=== PATIENT | male | born 2000 | race Caucasian/White ===

== ENCOUNTER 2023-10-13 01:19 | Emergency (ER) | payer MEDICAID ==
[~2023-10-13] VITALS: Ht 182.9 cm; Wt 110.0 kg
[2023-10-13 01:23] VITALS: O2SAT 97
[2023-10-13] MEDS ORDERED: KETOROLAC 15MG/ML VIAL IV ONE (01:45)
[2023-10-13 02:07] LABS: BASOPHILS % 0.3 % (0.0-2.0); EOSINOPHILS % 0.3 % (0.0-5.0); HEMATOCRIT. 34.9 % (42.0-52.0); HEMOGLOBIN. 12.1 g/dL (14.0-18.0); LYMPHOCYTES % 9.9 % (20.0-50.0); MEAN CORPUSCULAR HGB CONC 34.6 g/dL (31.0-37.0); MEAN CORPUSCULAR VOLUME 83.6 fL (80.0-94.0); MEAN PLATELET VOLUME 8.8 fl (7.4-10.4); MONOCYTES % 3.3 % (2.0-8.0); NEUTROPHILS % 86.2 % (40.0-76.0); PLATELET 146 x1000/uL (130-400); RED BLOOD CELL COUNT 4.17 mill/uL (4.7-6.1); RED CELL DISTRIBUTION WIDTH 15.4 % (11.6-14.6); WHITE BLOOD COUNT 7.7 x1000/uL (4.5-11.0)
[2023-10-13 02:18] LABS: ALANINE AMINOTRANSFERASE 211 IU/L (10-49); ASPARTATE AMINOTRANSFERASE 187 IU/L (<34); BILIRUBIN TOTAL 1.1 mg/dL (0.1-1.0); CALCIUM 8.4 mg/dL (8.7-10.4); CARBON DIOXIDE 23 mEq/L (21-32); CHLORIDE 104 mEq/L (98-107); CREATININE 0.7 mg/dL (0.6-1.3); GLUCOSE 122 mg/dL (70-105); POTASSIUM 3.4 mEq/L (3.5-5.1); PROTEIN TOTAL 6.6 g/dL (6.0-8.3); SODIUM 138 mEq/L (136-145); UREA NITROGEN BLOOD 11 mg/dL (9-23)
[2023-10-13 02:31] LABS: ETHANOL BLOOD < 10 mg/dL (<10)
[2023-10-13] MEDS: KETOROLAC 15MG/ML VIAL IV NR (04:17)
[2023-10-13 04:23] LABS: CLARITY URINE CLEAR (CLEAR); COLOR URINE DARK YELLOW (YELLOW); GLUCOSE URINE NEGATIVE (NEGATIVE); KETONES URINE NEGATIVE (NEGATIVE); LEUKOCYTE ESTERASE URINE NEGATIVE (NEGATIVE); NITRITE URINE NEGATIVE (NEGATIVE); OCCULT BLOOD URINE NEGATIVE (NEGATIVE); PH URINE 6.5 (4.5-8.0); PROTEIN URINE NEGATIVE (NEGATIVE); SPECIFIC GRAVITY URINE 1.019 (1.005-1.030); UROBILINOGEN URINE >8.0 E.U./dL (0.2-1.0)
[2023-10-13 04:28] LABS: *AMPHETAMINES SCREEN URINE NEGATIVE (NEGATIVE); *BARBITURATES SCREEN URINE NEGATIVE (NEGATIVE); *BENZODIAZEPINES SCREEN URINE NEGATIVE (NEGATIVE); *COCAINE SCREEN URINE NEGATIVE (NEGATIVE); CANNABINOID URINE SCREEN NEGATIVE (NEGATIVE); ECSTASY MDMA SCREEN URINE NEGATIVE (NEGATIVE); METHADONE URINE SCREEN Neg (NEGATIVE); OPIATES URINE SCREEN NEGATIVE (NEGATIVE); PHENCYCLIDINE URINE SCREEN NEGATIVE (NEGATIVE)
[2023-10-13 04:51] LABS: BACTERIA URINE NONE SEEN; RBC URINE 0-2 /hpf (0-2); SQUAMOUS EPITHELIAL CELL URINE NONE SEEN /lpf (RARE/1+); WBC URINE 0-2 /hpf (0-2)
[2023-10-13] MEDS ORDERED: NAPR-677 MT (06:36)
[2023-10-13 06:59] VITALS: BP 125/78; PULSE 115; RESP 18; TEMP 103.3
== END 2023-10-13 07:00 | disposition home or self-care (01) ==
LOC: ER 01:36
DX: R50.9 Fever, unspecified (principal); R74.01 Elevation of levels of liver transaminase levels; B34.9 Viral infection, unspecified; Z20.822 Contact with and (suspected) exposure to COVID-19
CPT/HCPCS: 80053; 80305; 81003; 80320; 85025; 87804 ×2; 36415; 71045; 76705; 96374; 99285; 87426; J1885; Z7610; G0480

== ENCOUNTER 2024-06-29 17:10 | Emergency (ER) | payer MEDICAID ==
[~2024-06-29] VITALS: Ht 172.7 cm; Wt 115.0 kg
[~2024-06-29 17:10] MED LIST: NAPR-677 MT
[2024-06-29 17:20] VITALS: O2SAT 100
[2024-06-29] MEDS ORDERED: ACETAMINOPHEN 325MG TABLET PO ONE (17:30)
[2024-06-29] MEDS: ACETAMINOPHEN 325MG TABLET PO NR (21:41)
[2024-06-29] MEDS: IBUPROFEN 400MG TABLET PO ONE (21:41)
[2024-06-29] MEDS ORDERED: ACET-2708 MT (23:45)
[2024-06-30 00:07] VITALS: BP 140/77; PULSE 62; RESP 18; TEMP 36.72516; O2SAT 100
== END 2024-06-30 00:09 | disposition home or self-care (01) ==
LOC: ER 17:10
DX: R51.9 Headache, unspecified (principal)
CPT/HCPCS: 99284

== ENCOUNTER 2024-07-02 13:46 | Emergency (ER) | payer MEDICAID ==
[~2024-07-02] VITALS: Ht 175.3 cm; Wt 132.0 kg
[~2024-07-02 13:46] MED LIST changes: +ACET-2708 MT
[2024-07-02 13:49] VITALS: O2SAT 99
[2024-07-02 13:50] VITALS: BP 152/96; PULSE 80; RESP 14; TEMP 98.7; O2SAT 98
== END 2024-07-02 22:09 | disposition left against medical advice (07) ==
LOC: ER 13:46
DX: R51.9 Headache, unspecified (principal); Z53.21 Procedure and treatment not carried out due to patient leaving prior to being seen by health care provider

== ENCOUNTER 2024-09-05 09:09 | Emergency (ER) | payer MEDICAID ==
[~2024-09-05] VITALS: Ht 175.3 cm; Wt 131.5 kg
[2024-09-05 09:25] VITALS: O2SAT 98
[2024-09-05 11:12] LABS: BASOPHILS % 0.6 % (0.0-2.0); EOSINOPHILS % 0.7 % (0.0-5.0); HEMATOCRIT. 41.2 % (42.0-52.0); HEMOGLOBIN. 13.5 g/dL (14.0-18.0); LYMPHOCYTES % 31.9 % (20.0-50.0); MEAN CORPUSCULAR HEMOGLOBIN 27.8 pg (28.0-32.0); MEAN CORPUSCULAR HGB CONC 32.8 g/dL (31.0-37.0); MEAN CORPUSCULAR VOLUME 84.8 fL (80.0-94.0); MEAN PLATELET VOLUME 8.8 fl (7.4-10.4); NEUTROPHILS % 59.8 % (40.0-76.0); PLATELET 279 x1000/uL (130-400); RED BLOOD CELL COUNT 4.86 mill/uL (4.7-6.1); RED CELL DISTRIBUTION WIDTH 15.8 % (11.6-14.6); WHITE BLOOD COUNT 6.2 x1000/uL (4.5-11.0)
[2024-09-05 11:19] LABS: CHLORIDE 105 mEq/L (98-107); POTASSIUM 3.2 mEq/L (3.5-5.1); SODIUM 140 mEq/L (136-145)
[2024-09-05 11:20] LABS: CARBON DIOXIDE 24 mEq/L (21-32)
[2024-09-05 11:25] LABS: CREATININE 0.7 mg/dL (0.6-1.3); GLUCOSE 101 mg/dL (70-105)
[2024-09-05 11:26] LABS: UREA NITROGEN BLOOD 6 mg/dL (9-23)
[2024-09-05 11:27] LABS: ALANINE AMINOTRANSFERASE 104 IU/L (10-49); ALBUMIN 4.3 g/dL (3.2-4.8); ASPARTATE AMINOTRANSFERASE 99 IU/L (<34)
[2024-09-05 11:28] LABS: BILIRUBIN TOTAL 0.6 mg/dL (0.1-1.0); PROTEIN TOTAL 7.2 g/dL (6.0-8.3)
[2024-09-05] MEDS: MAGNESIUM/ALUMINUM HYDROXIDE/SIMETHICONE 30ML UDC PO ONE (11:28)
[2024-09-05] MEDS: FAMOTIDINE 20MG TABLET PO ONE (11:28)
[2024-09-05 12:07] LABS: ALANINE AMINOTRANSFERASE 102 IU/L (10-49); ALBUMIN 4.4 g/dL (3.2-4.8); ASPARTATE AMINOTRANSFERASE 104 IU/L (<34); TROPONIN I HIGH SENSITIVITY 91 ng/L (3.0-53)
[2024-09-05 12:08] LABS: BILIRUBIN DIRECT 0.2 mg/dL (<=3.0); BILIRUBIN TOTAL 0.5 mg/dL (0.1-1.0); PROTEIN TOTAL 7.4 g/dL (6.0-8.3)
[2024-09-05] MEDS ORDERED: POTASSIUM CHLORIDE 20MEQ/PACKET PO NR (16:00)
[2024-09-05] MEDS ORDERED: ENOXAPARIN 150MG/ML SYR SUBCUT SCH (16:00)
[2024-09-05] MEDS ORDERED: ASPIRIN 81MG TABLET PO SCH (16:00)
[2024-09-05 19:04] VITALS: BP 146/87; PULSE 74; RESP 16; TEMP 36.66960; O2SAT 99
== END 2024-09-05 19:10 | disposition left against medical advice (07) ==
LOC: ER 09:09 → EDBEDREQTM 14:23 → EDBEDREQ 14:23 → CANBEDREQ 19:04 → ER 19:10
DX: R07.9 Chest pain, unspecified (principal); R79.89 Other specified abnormal findings of blood chemistry; Z79.1 Long term (current) use of non-steroidal anti-inflammatories (NSAID); Z79.82 Long term (current) use of aspirin
CPT/HCPCS: 80076; 80053; 83690; 85025; 84484; 36415; 71045; 76700; 93005; 99285; Z7610